=== PATIENT | male | born 1960 | race Caucasian/White ===

== ENCOUNTER 2017-03-30 10:32 | Outpatient (RCR) | payer OTHER ==
[~2017-03-30 10:32] MED LIST: PENTAMIDINE 300 MG IH ONE; RT-ALBUTEROL HFA (VENTOLIN) PER PUFF IH ONE; RT-ALBUTEROL SULF 2.5 MG/3 ML PRE-MIX VIAL IH ONE; RT-ALBUTEROL SULF 2.5 MG/3 ML PRE-MIX VIAL ONE
== END 2017-05-27 | disposition home or self-care (01) ==
LOC: ONC 10:32
PROVIDERS: ATTEND Radiology Radiation Oncology
DX: Z51.0 Encounter for antineoplastic radiation therapy (principal); C71.2 Malignant neoplasm of temporal lobe
CPT/HCPCS: 77301; 77332; 77334; 77336; 77338; 77386; 77470; 94640; 94642; 99214